=== PATIENT | female | born 1955 | race Caucasian/White ===

== ENCOUNTER 2025-02-20 12:13 | Outpatient (CLI) | payer BC, MEDICAID ==
--- NOTE | 2025-02-20 14:04 | RADIOLOGY REPORT ---
EXAM: MR MRI LOWER EXTREMITY LEFT INDICATION: LEFT HIP PAIN TECHNIQUE: Multiplanar and multisequence MR imaging of the left hip was performed in the absence of g adolinium contrast material. COMPARISON: None FINDINGS: [BONE]: Sacroiliac joints and pubic symphysis intervals are normal. Bone marrow signal is normal. No acute fracture, osseous contusion, avascular necrosis, or aggressive osseous lesion. [MUSCLES]: Normal in bulk and morphology. [JOINT SPACE]: No joint effusion. [BURSAE]: Left greater trochanteric bursitis with possible full-thickness tear of the anterior fibers of the gluteus medius tendon insertion. [LABRUM/CARTILAGE]: Volume loss of the superior labrum which may be degenerative in bases. Small femo ral head/ neck osteophyte. Diffuse cartilage thinning particularly of the superior aspect of the left hip joint. Subchondral cysts of the anterior superior acetabular rim. [LIGAMENTS]: Intact ligamentum teres, acetabular transverse ligament, and joint capsular ligaments. [TENDONS]: Intact rectus femoris, hamstring, and gluteal tendons. [OTHER]: Mild sigmoid diverticulosis. IMPRESSION: 1. Left greater trochanteric bursitis with possible full-thickness tear of the anterior fibers of the gluteus medius tendon insertion. 2. Volume loss of the superior labrum which may be degenerative in bases. Small femoral head/ neck os teophyte. Diffuse cartilage thinning particularly of the superior aspect of the left hip joint. Subc hondral cysts of the anterior superior acetabular rim.
== END 2025-02-20 23:59 | disposition home or self-care (01) ==
LOC: MRI02 12:13
PROVIDERS: ATTEND Neurological Surgery
DX: M70.62 Trochanteric bursitis, left hip (principal); M25.552 Pain in left hip
CPT/HCPCS: 73721